=== PATIENT | female | born 2000 | race Two or more races ===

== ENCOUNTER 2018-11-24 20:39 | Emergency (ER) | payer MEDICAID ==
[~2018-11-24] VITALS: Ht 165.1 cm; Wt 84.2 kg
[2018-11-24 20:52] VITALS: BP 103/54
[2018-11-24 21:34] LABS: MICROSCOPIC AUTO
[2018-11-24 21:38] LABS: CULTURE INDICATED? YES
--- NOTE | 2018-11-24 21:40 | NUR ---
pt to room from lobby
--- NOTE | 2018-11-24 21:46 | NUR ---
SHARP PAIN IN LEFT LOWER ABD/GROIN X 2 MONTHS. DESCRIBED OVARY PAIN. STATED TODAY, PAIN HAS BEEN WORSE AND HAS NAUSEA. DENIED V/D AND URINARY PROMBLEMS.
[2018-11-24 22:00] LABS: BASOPHILS # (AUTO) 0.05 x10^3/uL (0-0.3); BASOPHILS % (AUTO) 1 % (0-1); EOSINOPHILS # (AUTO) 0.25 x10^3/uL (0-0.8); EOSINOPHILS % (AUTO) 2 % (1-7); LYMPHOCYTES # (AUTO) 2.85 x10^3/uL (1-6.1); LYMPHOCYTES % (AUTO) 26 % (22-44); MD NO; MEAN CORPUSCULAR HEMOGLOBIN 33.2 pg (27.0-34.8); MEAN CORPUSCULAR VOLUME 97.7 fL (80-100); MEAN PLATELET VOLUME 9.7 fL (7.4-10.4); MONOCYTES # (AUTO) 0.73 x10^3/uL (0-1.4); MONOCYTES % (AUTO) 7 % (2-9); NEUTROPHILS # (AUTO) 6.93 x10^3/uL (1.8-8.0); NEUTROPHILS % (AUTO) 64 % (42-75); PLATELET COUNT 259 x10^3/uL (130-400); RED BLOOD COUNT 4.66 x10^6/uL (3.82-5.3); RED CELL DISTRIBUTION WIDTH 12.7 % (9.6-15.2)
[2018-11-24 22:11] LABS: ALANINE AMINOTRANSFERASE 20 U/L (12-78); ALBUMIN 4.1 g/dL (3.4-5.0); ANION GAP 5 mmol/L (5-15); CALCIUM 9.5 mg/dL (8.5-10.1); CHLORIDE 104 mmol/L (98-107); CREATININE 0.87 mg/dL (0.55-1.02)
[2018-11-24 22:16] LABS: ALKALINE PHOSPHATASE 99 U/L (45-117); BILIRUBIN,TOTAL 0.5 mg/dL (0.2-1.0); TOTAL PROTEIN 8.4 g/dL (6.4-8.2)
--- NOTE | 2018-11-24 22:40 | NUR ---
PT RESTING IN [facility] IN [place]
== END 2018-11-24 23:29 | disposition home or self-care (01) ==
LOC: ED 21:30
DX: N83.291 Other ovarian cyst, right side (principal); R10.2 Pelvic and perineal pain
CPT/HCPCS: 36415; 76830; 80053; 81001; 84703; 85025; 87086; 99284

== ENCOUNTER 2020-05-04 23:48 | Emergency (ER) | payer MEDICAID ==
[~2020-05-04] VITALS: Ht 165.1 cm; Wt 79.7 kg
--- NOTE | 2020-05-05 00:22 | NUR ---
TO ULTRASOUND WITH TECH, URINE SAMPLE SENT.
[2020-05-05 00:32] LABS: MICROSCOPIC NOT IND
--- NOTE | 2020-05-05 00:58 | NUR ---
BACK FROM ULTRASOUND.
[2020-05-05 01:00] LABS: BASOPHILS % (AUTO) 0 % (0-1); EOSINOPHILS % (AUTO) 2 % (1-7); LYMPHOCYTES % (AUTO) 26 % (22-44); MEAN CORPUSCULAR HEMOGLOBIN 33.7 pg (27.0-34.8); MEAN CORPUSCULAR HGB CONC 35.2 g/dL (32.4-35.8); MEAN PLATELET VOLUME 9.3 fL (7.4-10.4); MONOCYTES % (AUTO) 9 % (2-9); NEUTROPHILS % (AUTO) 62 % (42-75); PLATELET COUNT 236 x10^3/uL (130-400); RED BLOOD COUNT 4.03 x10^6/uL (3.82-5.3); RED CELL DISTRIBUTION WIDTH 12.3 % (9.6-15.2)
[2020-05-05 01:01] LABS: MD NO
[2020-05-05 01:43] VITALS: BP 128/71
== END 2020-05-05 01:52 | disposition home or self-care (01) ==
LOC: ED 05-05 01:50
DX: O26.891 Other specified pregnancy related conditions, first trimester (principal); R10.30 Lower abdominal pain, unspecified; R11.0 Nausea; Z3A.00 Weeks of gestation of pregnancy not specified
CPT/HCPCS: 36415; 76830; 81003; 84702; 85025; 99284; 99285

== ENCOUNTER 2021-01-05 08:39 | Emergency (ER) | payer MEDICAID ==
[~2021-01-05] VITALS: Ht 165.1 cm; Wt 81.6 kg
--- NOTE | 2021-01-05 08:59 | NUR ---
PT CAME IN CO VB. PT REPORTS SHE IS ROUGHLY 4 WEEKS PREG. PT ALSO REPROTS HAVING A MISCARRIAGE IN APRIL AND SHE WAS ABOUT 9 WEEKS ALONG DURING THAT. PT REPORTS THAT IT WAS A SMALL AMOUNT OF BLOOD CAME OUT THIS MORNING AND ISNT ACTIVELY BLEEDING NOW.
[2021-01-05 09:28] LABS: BASOPHILS % (AUTO) 1 % (0-1); EOSINOPHILS % (AUTO) 9 % (1-7); LYMPHOCYTES % (AUTO) 31 % (22-44); MEAN CORPUSCULAR HEMOGLOBIN 32.5 pg (27.0-34.8); MEAN CORPUSCULAR HGB CONC 34.8 g/dL (32.4-35.8); MEAN PLATELET VOLUME 8.9 fL (7.4-10.4); MONOCYTES % (AUTO) 8 % (2-9); NEUTROPHILS % (AUTO) 53 % (42-75); PLATELET COUNT 236 x10^3/uL (130-400); RED BLOOD COUNT 4.35 x10^6/uL (3.82-5.3); RED CELL DISTRIBUTION WIDTH 13.1 % (9.6-15.2)
[2021-01-05 09:47] LABS: ALBUMIN 3.6 g/dL (3.4-5.0); CALCIUM 8.8 mg/dL (8.5-10.1); CREATININE 0.62 mg/dL (0.55-1.02)
--- NOTE | 2021-01-05 10:09 | NUR ---
PT BACK FROM ULTRASOUND, CONNECTED TO MONITORS. CALL LIGHT WITHIN REACH
[2021-01-05 10:19] LABS: ANION GAP 6 mmol/L (5-15); CHLORIDE 107 mmol/L (98-107)
[2021-01-05 10:21] VITALS: BP 106/61
== END 2021-01-05 11:45 | disposition home or self-care (01) ==
LOC: ED 08:53
DX: N93.8 Other specified abnormal uterine and vaginal bleeding (principal); N92.1 Excessive and frequent menstruation with irregular cycle
CPT/HCPCS: 36415; 76801; 80048; 82040; 84702; 85025; 86901; 99284